=== PATIENT | female | born 1950 | race Caucasian/White ===

== ENCOUNTER 2023-07-25 09:47 | Inpatient (IN) ==
--- NOTE | 2023-07-25 10:05 | Emergency Department Note ---
Impression & Plan Respiratory failure, Hypoxia, COPD (chronic obstructive pulmonary disease) ED Provider Note NAME: MYKEL SHELTON AGE: 72 SEX: F : 1950 ARRIVES VIA: Ambulance INFORMANT: Patient ED PROVIDER(S): José Miguel Campbell DO CHIEF COMPLAINT: Shortness of breath HPI: Patient is a 72-year-old female with a past medical history of COPD, hypertension and hyperlipidemia that presents to the ER via EMS for shortness of breath. She underwent elective surgery on her bilateral eyelids by Dr. Alejandro earlier today. When she was waking up from anesthesia which she had an LMA in place she started coughing and then they noticed rales. She was found to be hypoxic per the report in the 70%. EKG showed depressions. She was placed on oxygen and eventually titrated down to 6 L. She was given Lasix and transferred to the ER. Patient denies any chest pain but admits to shortness of breath. No belly pain, nausea, vomiting, or diarrhea. ADDITIONAL HISTORY OBTAINED: Per HPI Chronic Medical/Social Conditions Affecting Care: Per HPI PAST MEDICAL HISTORY:See Below PAST SURGICAL HISTORY:See Below FAMILY HISTORY:See Below SOCIAL HISTORY:See Below HOME MEDICATIONS:See Below ALLERGIES:See Below VITALS:See Below PHYSICAL EXAMINATION: GENERAL: Sitting up in bed, alert, dyspneic with conversation, slightly ill- appearing EYE EXAM: normal conjunctiva. PERRL and EOM's grossly intact. Sutures bilaterally throughout the eyelids OROPHARYNX: mucous membranes are moist NECK: supple, no nuchal rigidity, no adenopathy, non-tender LUNGS: Rales bilaterally normal chest wall mechanics HEART: no murmurs, S1 normal and S2 normal ABDOMEN: abdomen soft, non-tender, normo-active bowel sounds, no masses, no rebound or guarding. BACK: Back is symmetrical on inspection and there is no deformity, no midline tenderness, no CVA tenderness. UPPER EXTREMITIES: upper extremities are grossly normal. LOWER EXTREMITIES: No pitting edema. NEURO EXAM: Normal sensorium, cranial nerves II-XII grossly intact, normal speech, no gross weakness of arms, no gross weakness of legs. MEDICAL DECISION MAKING: Patient is a 72-year-old female who presents the ER from anesthesia following have bilateral eye glued surgeries performed. She was found to be hypoxic when they woke her up from anesthesia with an LMA in place. She was transferred to hospice prior to receiving Lasix with a chest x-ray suggesting pulmonary edema. Upon arrival she is found to be hypoxic on room air was placed on 6 L. IV was established blood work was obtained. Labs showed mild leukocytosis of 13,000. No significant anemia. BMP along LFTs bilirubin and Pro-Anatoly was unremarkable. Chest x-ray with mild pulmonary edema. Patient already received Lasix prior to arrival. Hypoxia improved but she was still hypoxic with any movement. She remained on nasal cannula. She updated bedside and discussed case with the hospitalist for further evaluation management treatment Dr. Brain Mcdermott. Consults/Care Managements Discussions: Per [facility] Triage Nursing notes reviewed. Limited review of prior medical records performed Vital Signs: reviewed and remarkable for tachycardic and hypoxic Differential diagnosis: Differential diagnoses includes but is not limited to pneumonia, bronchitis, COPD/Asthma exacerbation, pneumothorax, pulmonary embolism, congestive heart failure, acute coronary syndrome ER treatment provided: See below Diagnostics interpreted by me include EKG and cardiac monitoring as listed below: -Cardiac Monitoring: An order was placed for continuous cardiac monitoring. The monitor shows a rate of 95 with sinus rhythm. -ECG: Sinus rhythm rate of 90 Left axis No PVCs T wave flattening and ST depressions anterior lateral and high lateral leads -Laboratory studies:Interpreted by me as stated above in MDM and shown below. Imaging studies: Xrays: As interpreted by me: Portable AP upright 1 view of the chest shows mild pulmonary congestion CTs show: none Procedures:none Critical Care: I have personally spent 32 minutes of critical care time in the direct management of this patient. This includes bedside care, interpretation of diagnostic studies, and testing, discussion with consultants, patient, and family members, and other required patient management activities. This 32 minutes is in excess of all separately billable procedures. Past Med/Surg History Problem List (Updated 07/25/23 @ 14:11 by José Miguel Campbell DO) Respiratory failure (Acute) Hypoxia (Acute) Dermatochalasis of both upper eyelids COPD (chronic obstructive pulmonary disease) (Acute) Hyperlipidemia Hypertension Arthritis Medical History Osteoarthritis Overactive bladder Stress incontinence Seasonal allergies COPD (chronic obstructive pulmonary disease) daily inh Hyperlipidemia Hypertension Surgical History Hx of cardiac catheterization within last 5 years, but not the past year, abn stress test, [facility], no stents; f/u [facility] pina>>had recent stress test fall 2022 "everything looked good" Hx of colonoscopy Hx of bilateral cataract extraction Family History Other Heart disease Prostate cancer Social History (Updated 03/20/23 @ 09:59 by Dara Cortes) Smoking Status: Former smoker Second Hand Exposure: Yes (hx); Do You Dip or Chew Tobacco: No; Hx Alcohol Use: No Hx Substance Use: No Preferred Language: Welsh Communication Ability: Effective Retail Experience Specialist Required: No Beliefs That Will Affect Care: None Current Living Situation: Spouse Feels Safe at Home: Yes Assistive Devices: None Allergies Allergies Allergy/AdvReac Type Severity Reaction Status Date / Time No Known Allergies Allergy Mild Verified 07/25/23 06:19 Home Meds Home Medications Medication Instructions Recorded Confirmed amlodipine 5 mg tablet 5 mg PO QAM 03/20/23 07/25/23 aspirin 81 mg tablet,delayed 81 mg PO HS 03/20/23 07/25/23 release atorvastatin 40 mg tablet 40 mg PO HS 03/20/23 07/25/23 cranberry 500 mg capsule 500 mg PO QAM 03/20/23 07/25/23 docusate sodium 100 mg capsule 100 mg PO HS 03/20/23 07/25/23 fluticasone fur. 100 mcg-umeclid 1 inh inhalation QAM 03/20/23 07/25/23 62.5 mcg-vilant 25 mcg inhalat.powder (Trelegy Ellipta) losartan 100 mg tablet 100 mg PO QAM 03/20/23 07/25/23 magnesium 200 mg tablet 400 mg PO QAM 03/20/23 07/25/23 omeprazole 20 mg capsule,delayed 20 mg PO QAM 03/20/23 07/25/23 release roflumilast 500 mcg tablet 500 mcg PO QAM 03/20/23 07/25/23 Retatrutide 1 dose INJ Q7D weight loss 07/04/23 07/25/23 celecoxib 100 mg capsule 100 mg PO BID 07/25/23 07/25/23 cholecalciferol (vitamin D3) 25 25 mcg PO QAM 07/25/23 07/25/23 mcg (1,000 unit) tablet (Vitamin D3) solifenacin 10 mg tablet 10 mg PO HS PRN Overactive Bladder 07/25/23 07/25/23 Previous Rx's Medication Instructions Recorded erythromycin 5 mg/gram (0.5 %) eye 0.5 inch ophthalmic (eye) BID #3.5 07/09/23 ointment grams hydrocodone 5 mg-acetaminophen 325 1 tab PO Q4H PRN pain #10 tabs 07/09/23 mg tablet Results & Data (ED) Vital Signs Vital Signs - 24 hr 07/25/23 10:15 07/25/23 10:18 07/25/23 10:19 Temperature 36.4 C L Temperature Source Oral Pulse Rate 82 Pulse Rate [Exercises] Pulse Rate [Left Finger] Pulse Rhythm Regular Pulse Strength Normal Respiratory Rate 38 H Respiratory Rate [Exercises] Respiratory Effort / Characteristics Spontaneous Accessory Muscle Use Short of Breath SOB on Exertion Spontaneous Accessory Muscle Use Short of Breath SOB on Exertion Respiratory Depth Shallow Shallow Respiratory Pattern Tachypnea Tachypnea Blood Pressure 138/74 Blood Pressure [Left Arm] Blood Pressure Mean 95 Blood Pressure Mean [Left Arm] Blood Pressure Position Sitting Pulse Oximetry 71 L 71 L Pulse Oximetry [Exercises] Oxygen Delivery Method Room Air Oxymask Oxymask Oxygen Flow Rate 0 Sepsis Recent Fever Within 48 Hours No Sepsis New/Unexplained Change in Mental Status No Sepsis Action Taken by Nursing No Action Required Oxygen Flow Rate - Titration 8 Pulse Oximetry Post Tiitration 100 07/25/23 10:27 07/25/23 11:42 07/25/23 12:20 Temperature Temperature Source Pulse Rate 84 90 Pulse Rate [Exercises] 86 Pulse Rate [Left Finger] Pulse Rhythm Pulse Strength Respiratory Rate 16 Respiratory Rate [Exercises] 24 Respiratory Effort / Characteristics Respiratory Depth Respiratory Pattern Blood Pressure Blood Pressure [Left Arm] Blood Pressure Mean Blood Pressure Mean [Left Arm] Blood Pressure Position Pulse Oximetry 98 Pulse Oximetry [Exercises] 84 L Oxygen Delivery Method Aerosol Mask Room Air Oxygen Flow Rate Sepsis Recent Fever Within 48 Hours Sepsis New/Unexplained Change in Mental Status Sepsis Action Taken by Nursing Oxygen Flow Rate - Titration Pulse Oximetry Post Tiitration 07/25/23 12:20 07/25/23 12:38 Temperature Temperature Source Pulse Rate Pulse Rate [Exercises] Pulse Rate [Left Finger] 96 H Pulse Rhythm Pulse Strength Respiratory Rate 28 H Respiratory Rate [Exercises] Respiratory Effort / Characteristics Non-Labored Spontaneous Respiratory Depth Normal Respiratory Pattern Blood Pressure Blood Pressure [Left Arm] 138/74 Blood Pressure Mean Blood Pressure Mean [Left Arm] 95 Blood Pressure Position Pulse Oximetry 84 L 95 Pulse Oximetry [Exercises] Oxygen Delivery Method Room Air Nasal Cannula Oxygen Flow Rate 0 2.5 Sepsis Recent Fever Within 48 Hours Sepsis New/Unexplained Change in Mental Status Sepsis Action Taken by Nursing Oxygen Flow Rate - Titration 2.5 Pulse Oximetry Post Tiitration 93 Laboratory Data 07/25/23 10:52 07/25/23 10:52 Lab Results 07/25/23 Range/Units 10:52 WBC 13.18 H (4.8-10.8) K/ul RBC 5.14 (4.20-5.40) M/uL Hgb 14.0 (12.0-16.0) g/dl Hct 45.2 (37.0-47.0) % MCV 87.9 (80.0-100.0) fL MCH 27.2 (25.0-34.0) pg MCHC 31.0 L (32.0-36.0) g/dL RDW Std Deviation 45.7 (36.4-46.3) fL RDW Coeff of Judith 14.2 (11.5-14.5) % Plt Count 343 (130-400) K/uL MPV 10.7 (9.4-12.4) fL Immature Gran % (Auto) 0.5 % Neut % (Auto) 91.7 % Lymph % (Auto) 6.6 % [place] % (Auto) 0.9 % Eos % (Auto) 0.0 % Baso % (Auto) 0.3 % Neut # (Auto) 12.08 H (1.40-6.50) K/uL Lymph # (Auto) 0.87 L (1.20-3.40) K/uL [place] # (Auto) 0.12 (0.11-0.59) K/uL Eos # (Auto) 0.00 (0.00-0.50) K/uL Baso # (Auto) 0.04 (0.00-0.20) K/uL Immature Gran # (Auto) 0.07 (0.01-0.20) K/uL Toxic Vacuolation 1+ Sodium 138 (136-145) mmol/L Potassium 3.6 (3.5-5.1) mmol/L Chloride 102 (98-107) mmol/L Carbon Dioxide 27 (21-32) mmol/L Anion Gap 9 (3-11) BUN 15 (6-23) mg/dl Creatinine 0.83 (0.6-1.2) mg/dl Est Cr Clr Drug Dosing 67.6 ml/min Est GFR ( Amer) 81.1 ml/min Est GFR (Non-Af Amer) 70.0 ml/min BUN/Creatinine Ratio 18.1 (10-20) Glucose 144 H (70-99(Fasting)) mg/dl Calcium 9.2 (8.6-10.3) mg/dl Total Bilirubin 0.4 (0.2-1.0) mg/dl AST 16 (13-39) U/L ALT 17 (7-52) U/L Alkaline Phosphatase 117 H (34-104) U/L Troponin I High Sens 7.9 (0-14) pg/ml B-Natriuretic Peptide 13 (0-100) pg/ml Total Protein 8.1 (6.0-8.3) gm/dl Albumin 4.6 (3.4-5.0) gm/dl Globulin 3.5 (2.5-4.0) gm/dl Albumin/Globulin Ratio 1.3 (0.9-2) Lipase 12 (11-82) U/L Procalcitonin 0.15 (0-0.5) ng/ml Administered Medications Discontinued Medications Acetaminophen (Acetaminophen 500 Mg Tab) 1,000 mg PO NOW STA Stop: 07/25/23 13:18 Last Admin: 07/25/23 13:25 Dose: 1,000 mg Documented By: MMG Albuterol (Albut/Ipratrop 3mg/0.5mg Neb 3 Ml Vial) 3 ml NEB NOW STA; Protocol Stop: 07/25/23 10:44 Last Admin: 07/25/23 11:37 Dose: 3 ml Documented By: NRB Furosemide (Furosemide 20 Mg Tab) 20 mg PO NOW STA Stop: 07/25/23 12:26 Last Admin: 07/25/23 13:14 Dose: 20 mg Documented By: BEREKET Imaging Data Radiologist's Impression: Chest X-Ray 07/25/23 09:58 XR chest 1V portable CLINICAL HISTORY: Chest pain, nonspecific TECHNIQUE: Single frontal radiograph of the chest was obtained. Comparison: Comparison is made to chest radiograph 07/25/2023 FINDINGS: No lines and tubes are seen. The cardiomediastinal silhouette is normal. Prominence and cephalization of the vasculature is seen. No evidence of pleural effusion or pneumothorax. IMPRESSION: Cardiomegaly and mild pulmonary edema. ACT 112: Negative or not required by law. Electronically signed by: Dorian Gore M.D. 07/25/2023 11:18 AM Discharge Plan Visit Data Chief Complaint: Respiratory Problems Stated Complaint: HYPOXIA ED Provider: José Miguel Campbell Discharge Problem: Respiratory failure, Hypoxia, COPD (chronic obstructive pulmonary disease) Forms Stand Alone Forms: My [facility] [employer] Prescriptions Prescriptions: No Action erythromycin 5 mg/gram (0.5 %) ointment 0.5 inch ophthalmic (eye) BID Qty: 3.5 0RF Rx Instructions: apply to sutures after surgery hydrocodone-acetaminophen 5-325 mg tablet 1 tab PO Q4H PRN (Reason: pain) Qty: 10 0RF Rx Instructions: initial therapy Dr. Alejandro [id number] amlodipine 5 mg tablet 5 mg PO QAM losartan 100 mg tablet 100 mg PO QAM Trelegy Ellipta 100-62.5-25 mcg blister with device 1 inh inhalation QAM roflumilast 500 mcg tablet 500 mcg PO QAM atorvastatin 40 mg tablet 40 mg PO HS omeprazole 20 mg capsule,delayed release(DR/EC) 20 mg PO QAM magnesium 200 mg tablet 400 mg PO QAM Hold Instructions: SURGERY cranberry 500 mg capsule 500 mg PO QAM Hold Instructions: SURGERY Rx Instructions: administer with meals aspirin 81 mg tablet,delayed release (DR/EC) 81 mg PO HS Hold Instructions: SURGERY docusate sodium 100 mg capsule 100 mg PO HS Retatrutide 1 dose INJ Q7D Hold Instructions: SURGERY Patient Comments: will be starting medication week of 07/07/23; as part of study [id number] Rx Instructions: Reasearch study, so pt is unsure of strength - Usually injects on Friday, but instead injected on Friday07/18/23 cholecalciferol (vitamin D3) [Vitamin D3] 25 mcg (1,000 unit) Tablet 25 mcg PO QAM celecoxib 100 mg capsule 100 mg PO BID solifenacin 10 mg tablet 10 mg PO HS PRN (Reason: Overactive Bladder) Referrals Referrals: Marcelle Platt M.D. [Primary Care Provider] - Discharge Problem: Respiratory failure Qualifiers: Chronicity: acute Respiratory failure complication: hypoxia Qualified Code(s): J96.01 - Acute respiratory failure with hypoxia COPD (chronic obstructive pulmonary disease) Qualifiers: COPD type: unspecified COPD Qualified Code(s): J44.9 - Chronic obstructive pulmonary disease, unspecified
[2023-07-25 11:08] LABS: Hematocrit (blood only) 45.2 % (37.0-47.0); Mean Corpuscular Hemoglobin 27.2 pg (25.0-34.0); Mean Corpuscular Volume 87.9 fL (80.0-100.0); Mean Platelet Volume 10.7 fL (9.4-12.4); Platelet Count 343 K/uL (130-400); RDW Coefficient of Variation 14.2 % (11.5-14.5); RDW Standard Deviation 45.7 fL (36.4-46.3); Red Blood Count 5.14 M/uL (4.20-5.40); White Blood Count 13.18 K/ul (4.8-10.8)
--- NOTE | 2023-07-25 11:19 | XRay Report ---
XR chest 1V portable CLINICAL HISTORY: Chest pain, nonspecific TECHNIQUE: Single frontal radiograph of the chest was obtained. Comparison: Comparison is made to chest radiograph 07/25/2023 FINDINGS: No lines and tubes are seen. The cardiomediastinal silhouette is normal. Prominence and cephalization of the vasculature is seen. No evidence of pleural effusion or pneumothorax. IMPRESSION: Cardiomegaly and mild pulmonary edema. ACT 112: Negative or not required by law. Electronically signed by: Dorian Gore M.D. 07/25/2023 11:18 AM
[2023-07-25 11:21] LABS: Albumin Globulin Ratio 1.3 (0.9-2); Albumin Level 4.6 gm/dl (3.4-5.0); BUN Creatinine Ratio 18.1 (10-20); Bilirubin,Total 0.4 mg/dl (0.2-1.0); Calcium 9.2 mg/dl (8.6-10.3); Creatinine Clr Calc Pharmacy 67.6 ml/min; Est GFR (African American) 81.1 ml/min; Globulin 3.5 gm/dl (2.5-4.0); Potassium 3.6 mmol/L (3.5-5.1); Total Protein 8.1 gm/dl (6.0-8.3)
[2023-07-25 11:27] LABS: Troponin I High Sensitivity 7.9 pg/ml (0-14)
[2023-07-25] MEDS: ALBUT/IPRATROP 3MG/0.5MG NEB 3 ML VIAL NEB STA (11:37)
[2023-07-25 12:06] LABS: Basophils # (auto) 0.04 K/uL (0.00-0.20); Basophils % (auto) 0.3 %; Immature Granulocytes # (auto) 0.07 K/uL (0.01-0.20); Immature Granulocytes % (auto) 0.5 %; Lymphocytes # (auto) 0.87 K/uL (1.20-3.40); Lymphocytes % (auto) 6.6 %; Monocytes # (auto) 0.12 K/uL (0.11-0.59); Monocytes % (auto) 0.9 %; Neutrophils # (auto) 12.08 K/uL (1.40-6.50); Neutrophils % (auto) 91.7 %; Toxic Vacuolation 1+
--- NOTE | 2023-07-25 12:37 | History & Physical Report ---
Date of Service July 25, 2023 Assessment & Plan (1) Hypoxia: Plan: -Admit to med/tele on pulse oximetry -Currently stable on RA at rest but quickly desaturates into the low 80's during ambulation on RA -Was sent to the ED after experiencing acute onset of tachypnea, hypoxia, and hypotension during her BL Blepharoplasty this am -CXR obtained during the procedure noted BL pulmonary vascular congestion, small pleural effusions, and mild pulmonary edema vs infectious/inflammatory pneumonitis -There was reported concern from anesthesiology regarding possible ST depressions in lead 3 while the patient was initially hypoxic, these have subsequently resolved on repeat ECG -Repeat CXR in the ED, after 20 mg IV Lasix shows significantly improved pulmonary edema -Suspect her initial respiratory failure was due to flash pulmonary edema occurring during intubation, patient is likely taking increased time to recover due to her hx of COPD -Procal is negative -Low suspicion for PE at this time as the patient has been hemodynamically stable while in the ED and is without chest discomfort -Patient states that she has PRN PO lasix at home but uses it sparingly for LE swelling -Will continue with the following: >Incentive spirometry/flutter therapy >Will give an additional 20 mg PO lasix now for ongoing diuresis today >QIDr DuoNebs >Continue home breathing treatments >PRN O2 to keep SpO2 between 89-92% -Monitor intake/output Q-shift -SQ lovenox for DVT PPX -HH diet with 2gm sodium restriction -AM CBC, CMP, mag (2) Status post blepharoplasty of both eyes: Plan: -Underwent BL Blepharoplasty with Dr. Alejandro prior to ED arrival -Dr. Alejandro reached out after admission, appreciate her assistance -Recommendations: >Continue Ice to surgical sites >Continue TID Polysporin to the surgical sites >Holding Celebrex for 7 days, with today being #1 >She has outpatient follow up on Friday, but we can reach out to Dr. Alejandro at any time if any questions or concerns (3) COPD (chronic obstructive pulmonary disease): Plan: -Wheezing improved after DuoNeb treatment -Does not appear to be in a COPD exacerbation at this time -Continue home meds -Wean to RA as able -Rest of care per hypoxia plan (4) Hypertension: Plan: -Stable -Can hold other antihypertensives today -Will plan to resume all antihypertensives tomorrow if stable (5) Hyperlipidemia: Plan: -Continue statin Plan The patient was discussed with Dr. Mcdermott at the time of the admission History of Present Illness Chief Complaint: Acute respiratory failure with hypoxia Primary Care Provider: Marcelle Platt Lisa Wright is a 72 year old female with a PMH significant for COPD, HTN, hyperlipidemia, and GERD who was sent to the ED from the OR after she became tachypneic and hypoxic during elective BL Upper Blepharoplasty with Dr. Brea Alejandro this am. Per the anesthesiology communication note, the patient became suddenly tachypneic, hypoxic with SpO2 in the 70s, and reportedly hypotensive (not documented). Chest xray and ECG were obtained. Chest xray was read as 1. Pulmonary vascular congestion. 2. There are asymmetric bilateral airspace opacities, greatest in the left upper lung. This could represent mild pulmonary edema and/or an infectious/inflammatory pneumonitis. Clinical correlation will be required and radiographic follow-up to resolution is recommended. 3. Suspect small pleural effusions. There was concern for possible ST depression in lead 3 on ECG. The patient was given 20 mg IV Lasix with reported improvement. She was sent to the Ed for further evaluation. On arrival to the ED the patient was reported to be tachypneic at 38 and hypoxic at 71% on RA but otherwise stable. However, these vitals were obtained shortly after the patient walked to and from her ED room bathroom. Labs ordered in the ED had yet to be drawn at the time of my exam. The patient was sitting in bed in no acute distress with her bedside, history was obtained from both. At the start of my exam the patient was saturating at 96% on 6L oxymask. I turned her to RA and she remained stable throughout my history and exam. The patient states that she feels well after receiving IV Lasix earlier. She has been urinating frequently. She denies current fever, chills, chest pain, SOB/increased work of breathing, increased cough compared to baseline, nausea, vomiting, diarrhea, dysuria, hematuria, melena, LE swelling, and recent trauma. The patient states that she feels well and would prefer to be discharged home, her is in agreement. We explained that we would like to see what her repeat ECG, CXR, and initial labs look like. They are in agreement with staying until the initial workup is complete. She took her am losartan and roflumilast prior to arrival. Labs were significant for a leukocytosis of 13, CMP WNL, BNP WNL, and high sen trop of WNL. The patient was ordered a DuoNeb treatment by our team and underwent ambulatory pulse oximetry testing on RA but quickly desaturated into the low 80's on RA. The patient is a full code and her is her POA. Please refer to Dr. Mcdermott's attestation for any changes to the treatment plan Allergies Allergy/AdvReac Type Severity Reaction Status Date / Time No Known Allergies Allergy Mild Verified 07/25/23 06:19 Home Medications Medication Instructions Recorded Confirmed Type amlodipine 5 mg tablet 5 mg PO QAM 03/20/23 07/25/23 History aspirin 81 mg tablet,delayed 81 mg PO HS 03/20/23 07/25/23 History release atorvastatin 40 mg tablet 40 mg PO HS 03/20/23 07/25/23 History cranberry 500 mg capsule 500 mg PO QAM 03/20/23 07/25/23 History docusate sodium 100 mg capsule 100 mg PO HS 03/20/23 07/25/23 History fluticasone fur. 100 mcg-umeclid 1 inh inhalation QA 03/20/23 07/25/23 History 62.5 mcg-vilant 25 mcg inhalat.powder (Trelegy Ellipta) losartan 100 mg tablet 100 mg PO QAM 03/20/23 07/25/23 History magnesium 200 mg tablet 400 mg PO QAM 03/20/23 07/25/23 History omeprazole 20 mg capsule,delayed 20 mg PO QAM 03/20/23 07/25/23 History release roflumilast 500 mcg tablet 500 mcg PO QAM 03/20/23 07/25/23 History Retatrutide 1 dose INJ Q7D weight loss 07/04/23 07/25/23 History erythromycin 5 mg/gram (0.5 %) eye 0.5 inch ophthalmic (eye) BID #3.5 07/09/23 07/25/23 Rx ointment grams hydrocodone 5 mg-acetaminophen 325 1 tab PO Q4H PRN pain #10 tabs 07/09/23 07/25/23 Rx mg tablet celecoxib 100 mg capsule 100 mg PO BID 07/25/23 07/25/23 History cholecalciferol (vitamin D3) 25 25 mcg PO QAM 07/25/23 07/25/23 History mcg (1,000 unit) tablet (Vitamin D3) solifenacin 10 mg tablet 10 mg PO HS PRN Overactive Bladder 07/25/23 07/25/23 History Past Med/Surg History Problem List (Updated 07/25/23 @ 14:11 by José Miguel Campbell, ) Status post blepharoplasty of both eyes Respiratory failure (Acute) Hypoxia (Acute) Dermatochalasis of both upper eyelids COPD (chronic obstructive pulmonary disease) (Acute) Hyperlipidemia Hypertension Arthritis Medical History Osteoarthritis Overactive bladder Stress incontinence Seasonal allergies COPD (chronic obstructive pulmonary disease) daily inh Hyperlipidemia Hypertension Surgical History Hx of cardiac catheterization within last 5 years, but not the past year, abn stress test, [facility], no stents; f/u dr. gallego, [place]>>had recent stress test fall 2022 "everything looked good" Hx of colonoscopy Hx of bilateral cataract extraction Family History Other Heart disease Prostate cancer Social History (Updated 03/20/23 @ 09:59 by Dara Cortes) Smoking Status: Never smoker Second Hand Exposure: No; Do You Dip or Chew Tobacco: No; Hx Alcohol Use: No Hx Substance Use: No Preferred Language: Urdu Communication Ability: Effective [employer] Field Agent Required: No Beliefs That Will Affect Care: None Current Living Situation: Alone Feels Safe at Home: Yes Assistive Devices: None Physical Exam Physical Exam: Physical Exam: General: In no acute distress, stated age, chronically ill appearing but non-toxic HEENT: S/P BL Blepharoplasty with clean and intact surgical sites S/P closure, no scleral icterus, pupils around round, symmetrical, and reactive to light, moist mucus membranes, trachea midline, no thyromegaly Chest/Pulm: No respiratory distress, symmetrical chest expansion, scattered expiratory wheezing and crackles Cardiac: RRR, no murmurs noted Abdomen: Negative for ascites and bruising, normoactive bowel sounds, soft, non-tender to palpation throughout Musculoskeletal: Symmetrical and without signs of acute trauma, upper and lower extremities with full ROM, no atrophy, spasticity, or flaccidity Extremities: Radial, dorsalis pedis, and posterior tibial pulses are intact and symmetrical, no edema noted in the BL LE's Skin: Warm, dry, no rashes , lesions, or scars noted Neuro: Alert and oriented to person, place, month, year, and president, no focal defects, no tremors noted Psych: No acute distress, calm and cooperative during the exam Results & Data Results & Data Vital Signs (Past 12 Hours) Vital Signs Temp Pulse Pulse Resp Resp BP Pulse Ox 07/25/23 12:20 84 L 07/25/23 12:20 86 24 07/25/23 11:42 90 16 98 07/25/23 10:27 84 07/25/23 10:19 07/25/23 10:18 71 L 07/25/23 10:15 36.4 C L 82 38 H 138/74 71 L Pulse Ox O2 Del Method O2 Flow Rate 07/25/23 12:20 Room Air 0 07/25/23 12:20 84 L Room Air 07/25/23 11:42 Aerosol Mask 07/25/23 10:27 07/25/23 10:19 Oxymask 07/25/23 10:18 Oxymask 0 07/25/23 10:15 Room Air Laboratory Results Abnormal lab results 07/25/23 Range/Units 10:52 WBC 13.18 H (4.8-10.8) K/ul MCHC 31.0 L (32.0-36.0) g/dL Neut # (Auto) 12.08 H (1.40-6.50) K/uL Lymph # (Auto) 0.87 L (1.20-3.40) K/uL Glucose 144 H (70-99(Fasting)) mg/dl Alkaline Phosphatase 117 H (34-104) U/L Diagnostic Findings Chest X-Ray 07/25/23 09:58 XR chest 1V portable CLINICAL HISTORY: Chest pain, nonspecific TECHNIQUE: Single frontal radiograph of the chest was obtained. Comparison: Comparison is made to chest radiograph 07/25/2023 FINDINGS: No lines and tubes are seen. The cardiomediastinal silhouette is normal. Prominence and cephalization of the vasculature is seen. No evidence of pleural effusion or pneumothorax. IMPRESSION: Cardiomegaly and mild pulmonary edema. ACT 112: Negative or not required by law. Electronically signed by: Dorian Gore M.D. 07/25/2023 11:18 AM ECG Additional Comments: Normal sinus rhythm Minimal voltage criteria for LVH, may be normal variant ( R in aVL ) Nonspecific ST and T wave abnormality Abnormal ECG When compared with ECG of 25-JUL-2023 09:02, (unconfirmed) No significant change was found Code Status & VTE Plan Code Status Full code VTE Prophylaxis Plan VTE Prophylaxis will be ordered: Yes PG Care Time/CCT Total # of Minutes Spent Total Time Spent with Patient: Total time spent is greater than 50% in coordination of care (as documented) at patient's floor/unit and/or counseling patient: [place] [address] INT INP/OBS CARE 3/75MIN Patient Type New History Comprehensive Exam Comprehensive Medical Decision Making High Complexity Diagnoses Hypoxia R09.02 Status post blepharoplasty of both eyes Z98.890 COPD (chronic obstructive pulmonary disease) J44.9 Hypertension I10 Hyperlipidemia E78.5
[2023-07-25] MEDS: FUROSEMIDE 20 MG TAB PO STA (13:14)
[2023-07-25] MEDS: ACETAMINOPHEN 500 MG TAB PO STA (13:25)
[2023-07-25] MEDS: ALBUT/IPRATROP 3MG/0.5MG NEB 3 ML VIAL NEB SCH (14:29)
--- NOTE | 2023-07-25 15:23 | Electrocardiogram Report ---
Test Reason : Blood Pressure : / mmHG Vent. Rate : 090 BPM Atrial Rate : 090 BPM P-R Int : 148 ms QRS Dur : 084 ms QT Int : 350 ms P-R-T Axes : 049 -09 139 degrees QTc Int : 428 ms Normal sinus rhythm Minimal voltage criteria for LVH, may be normal variant Nonspecific ST and T wave abnormality Abnormal ECG When compared with ECG of 25-JUL-2023 09:02, (unconfirmed) No significant change was found Confirmed by Kevin Zarco ([id number]) on 07/25/2023 3:23:35 PM Referred By: REFERRED SELF Confirmed By:Zion Zarco
[2023-07-25] MEDS: BACITRACIN/POLYMYXIN B SULFATE 90 APPLN/28.4 GM TUBE EXT SCH (16:20)
[2023-07-25] MEDS ORDERED: oxyBUTYnin chloride 5 MG TAB PO PRN (18:58)
[2023-07-25] MEDS: ACETAMINOPHEN 325 MG TAB PO PRN (20:03)
[2023-07-25] MEDS: DOCUSATE SODIUM 100 MG CAP PO SCH (20:04)
[2023-07-25] MEDS: ATORVASTATIN 40 MG TAB PO SCH (20:04)
[2023-07-25] MEDS: ASPIRIN 81 MG ECTAB PO SCH (20:06)
[2023-07-25] MEDS: ENOXAPARIN INJ 40 MG/0.4 ML SYR SQ SCH (20:06)
[2023-07-25] MEDS: HYDROCODONE/ACETAMOPHEN 5/325MG TAB PO PRN (23:28)
[2023-07-26 07:06] LABS: Basophils # (auto) 0.03 K/uL (0.00-0.20); Basophils % (auto) 0.2 %; Eosinophils # (auto) 0.02 K/uL (0.00-0.50); Eosinophils % (auto) 0.1 %; Hematocrit (blood only) 37.4 % (37.0-47.0); Hemoglobin 11.7 g/dl (12.0-16.0); Immature Granulocytes # (auto) 0.06 K/uL (0.01-0.20); Immature Granulocytes % (auto) 0.4 %; Lymphocytes # (auto) 2.36 K/uL (1.20-3.40); Mean Corpuscular Hemoglobin 27.5 pg (25.0-34.0); Mean Corpuscular Hgb Conc 31.3 g/dL (32.0-36.0); Mean Corpuscular Volume 87.8 fL (80.0-100.0); Mean Platelet Volume 10.6 fL (9.4-12.4); Monocytes # (auto) 0.88 K/uL (0.11-0.59); Monocytes % (auto) 6.4 %; Neutrophils % (auto) 75.9 %; Platelet Count 329 K/uL (130-400); RDW Coefficient of Variation 14.4 % (11.5-14.5); RDW Standard Deviation 45.9 fL (36.4-46.3); Red Blood Count 4.26 M/uL (4.20-5.40); White Blood Count 13.85 K/ul (4.8-10.8)
[2023-07-26 07:16] LABS: Albumin Globulin Ratio 1.4 (0.9-2); BUN Creatinine Ratio 23.7 (10-20); Bilirubin,Total 0.4 mg/dl (0.2-1.0); Calcium 8.6 mg/dl (8.6-10.3); Creatinine Clr Calc Pharmacy 75.4 ml/min; Est GFR (African American) 90.2 ml/min; Est GFR (Non-African American) 77.8 ml/min; Globulin 2.8 gm/dl (2.5-4.0); Magnesium 1.9 mg/dl (1.7-2.4); Potassium 4.3 mmol/L (3.5-5.1); Total Protein 6.8 gm/dl (6.0-8.3)
[2023-07-26] MEDS: ROFLUMILAST 500 MCG TAB PO SCH (08:22)
[2023-07-26] MEDS: amLODIPine BESYLATE 5 MG TAB PO SCH (08:22)
[2023-07-26] MEDS: COUGH DROP (SUGAR FREE) LOZ 24 LOZ/1 BOX BUCCAL STA (08:22)
[2023-07-26] MEDS: MAGNESIUM OXIDE 400 MG TAB PO SCH (08:22)
[2023-07-26] MEDS: PANTOprazole 40 MG TAB PO SCH (08:22)
[2023-07-26] MEDS: LOSARTAN POTASSIUM 50 MG TAB PO SCH (08:22)
[2023-07-26] MEDS: FUROSEMIDE 40 MG/4 ML VIAL IV SCH (08:39)
[2023-07-26 09:01] LABS: D Dimer 480 ug/L FEU (0-500)
--- NOTE | 2023-07-26 09:45 | Hospitalist Progress Note ---
Date of Service July 26, 2023 Assessment & Plan (1) Hypoxia: Plan: Acute hypoxic respiratory failure present on admission. Treat underlying CHF. Oxygen to keep saturation greater than 90%. Wean off as tolerated. (2) Acute diastolic CHF (congestive heart failure): Plan: Continue Lasix diuresis. Monitor intake and output. Await cardiac echo results. Serial chest x-ray (3) Status post blepharoplasty of both eyes: Plan: Postoperative day #1. She underwent BL Blepharoplasty with Dr. Alejandro yesterday, July 24. Local care. (4) COPD (chronic obstructive pulmonary disease): Plan: Stable. Shortness of breath appears to be due to CHF rather than a COPD exacerbation. Continue current medical management. Wean off oxygen as tolerated. (5) Hypertension: Plan: Stable. Continue current medical management (6) Hyperlipidemia: Plan: Stable. Continue statin Plan Hopeful discharge to home within the next day or 2 Admission and Anticipated Discharge Date Admission Date: July 25, 2023 Subjective Alert and oriented. No distress. She continues to require oxygen and appears to have developed congestive heart failure during the bilateral blepharoplasty procedure yesterday, July 24. Cardiac echo report is pending. She is now on Lasix IV 40 mg every 12 hours. D-dimer is pending. If it is elevated, chest CTA will be obtained. Review of Systems 2 Review of Systems: Constitutional-no fever or chills ENT-no blurred vision, no double vision, no epistaxis, no sore throat. Bilateral blepharoplasty surgical sites are unremarkable. She has some associated bruising Respiratory-no cough, no wheezing. Shortness of breath with minimal exertion Cardiac-no palpitations, no chest pain, no syncope GI-no nausea, vomiting, diarrhea, melena, hematochezia -no urinary retention, no urinary incontinence, no dysuria, no hematuria Musculoskeletal-no joint pain, no muscle tenderness Skin-no bruising, no rashes, no pruritus Neuro-no isolated weakness, no paresthesia, no weakness Psych-no depression, no anxiety Physical Exam 2 Physical Exam: General-alert and oriented x3, no fever, no chills HEENT-head atraumatic and normocephalic, pupils equal and reactive to light, extraocular muscles intact. Bilateral blepharoplasty surgical sites are intact with some ecchymoses noted Neck-no lymphadenopathy or thyromegaly, trachea midline Chest-bibasilar inspiratory rales. No rhonchi. No wheezing Cardiac-regular rate and rhythm, normal S1 and S2 Abdomen-normal bowel sounds, no hepatosplenomegaly Extremities-no cyanosis, clubbing, or edema Neuro-cranial nerves II through XII intact, motor and sensory function within normal limits, strength symmetrical, no focal deficits Psych-normal affect, normal mood Results & Data Results & Data Vital Signs (Past 12 Hours) Vital Signs Temp Pulse Pulse Resp BP Pulse Ox O2 Del Method 07/26/23 07:36 36.6 C 65 18 137/82 98 Nasal Cannula 07/26/23 07:31 74 18 94 Nasal Cannula 07/26/23 07:00 69 07/26/23 03:36 36.6 C 71 20 144/77 H 96 Room Air 07/26/23 01:43 Nasal Cannula 07/26/23 00:27 36.7 C 100 H 20 165/81 H 94 Nasal Cannula 07/25/23 21:59 101 H O2 Flow Rate 07/26/23 07:36 7 07/26/23 07:31 3 07/26/23 07:00 07/26/23 03:36 07/26/23 01:43 2.5 07/26/23 00:27 2 07/25/23 21:59 Laboratory Results 07/26/23 06:15 07/26/23 06:15 PG Care Time/CCT Total # of Minutes Spent Total Time Spent with Patient: Total time spent is greater than 50% in coordination of care (as documented) at patient's floor/unit and/or counseling patient: Coding Level of Care Code 35621 SUB INP/OBS CARE 3/50MIN Diagnoses Hypoxia R09.02 Acute diastolic CHF (congestive heart failure) I50.31 Status post blepharoplasty of both eyes Z98.890 COPD (chronic obstructive pulmonary disease) J44.9 COPD type: unspecified COPD Hypertension I10 Hyperlipidemia E78.5 (4) COPD (chronic obstructive pulmonary disease) COPD type: unspecified COPD Qualified Code(s): J44.9 - Chronic obstructive pulmonary disease, unspecified
[2023-07-26] MEDS: IPRATROPIUM BROMIDE NEB SOLN 0.02% 0.5MG/2.5ML VIAL NEB SCH (16:06)
[2023-07-26] MEDS: LEVALBUTEROL 1.25 MG/3 ML NEB NEB SCH (16:06)
--- NOTE | 2023-07-27 | XCELERA ---
[id number]
[2023-07-27 06:42] LABS: Basophils # (auto) 0.04 K/uL (0.00-0.20); Basophils % (auto) 0.4 %; Eosinophils # (auto) 0.09 K/uL (0.00-0.50); Eosinophils % (auto) 0.9 %; Hematocrit (blood only) 38.3 % (37.0-47.0); Hemoglobin 12.2 g/dl (12.0-16.0); Immature Granulocytes # (auto) 0.05 K/uL (0.01-0.20); Immature Granulocytes % (auto) 0.5 %; Lymphocytes # (auto) 2.51 K/uL (1.20-3.40); Lymphocytes % (auto) 23.9 %; Mean Corpuscular Hemoglobin 27.7 pg (25.0-34.0); Mean Corpuscular Hgb Conc 31.9 g/dL (32.0-36.0); Mean Platelet Volume 10.9 fL (9.4-12.4); Monocytes # (auto) 0.73 K/uL (0.11-0.59); Monocytes % (auto) 6.9 %; Neutrophils % (auto) 67.4 %; Platelet Count 326 K/uL (130-400); RDW Coefficient of Variation 14.4 % (11.5-14.5); RDW Standard Deviation 46.1 fL (36.4-46.3); White Blood Count 10.52 K/ul (4.8-10.8)
[2023-07-27 07:11] LABS: Calcium 9.3 mg/dl (8.6-10.3); Creatinine Clr Calc Pharmacy 74.8 ml/min; Est GFR (African American) 91.7 ml/min; Est GFR (Non-African American) 79.1 ml/min; Potassium 4.2 mmol/L (3.5-5.1)
--- NOTE | 2023-07-27 08:15 | XRay Report ---
XR chest 1V portable HISTORY: 72 years-old Female CHF acute shortness of breath COMPARISON: 07/25/2023 TECHNIQUE: AP view of the chest FINDINGS: Cardiac silhouette is enlarged. Mild subsegmental bibasilar opacities. There is improved aeration of the lungs compared to the prior study. Bones appear grossly intact. IMPRESSION: 1. Cardiomegaly with continued improved aeration of the lungs. 2. Mild subsegmental bibasilar densities may be atelectatic. ACT 112: Negative or not required by law. The above report was generated using voice recognition software. It may contain grammatical, syntax o r spelling errors. Electronically signed by: Ministerio Elise M.D. 07/27/2023 8:14 AM
[2023-07-27] MEDS: POLYETHYLENE (MIRALAX) 17 GM PACK PO PRN (09:16)
--- NOTE | 2023-07-27 10:17 | Discharge Summary ---
Date of Service July 27, 2023 Admission HPI Per Admitting Provider Lisa Wright is a 72 year old female with a PMH significant for COPD, HTN, hyperlipidemia, and GERD who was sent to the ED from the OR after she became tachypneic and hypoxic during elective BL Upper Blepharoplasty with Dr. Brea Alejandro this am. Per the anesthesiology communication note, the patient became suddenly tachypneic, hypoxic with SpO2 in the 70s, and reportedly hypotensive (not documented). Chest xray and ECG were obtained. Chest xray was read as 1. Pulmonary vascular congestion. 2. There are asymmetric bilateral airspace opacities, greatest in the left upper lung. This could represent mild pulmonary edema and/or an infectious/inflammatory pneumonitis. Clinical correlation will be required and radiographic follow-up to resolution is recommended. 3. Suspect small pleural effusions. There was concern for possible ST depression in lead 3 on ECG. The patient was given 20 mg IV Lasix with reported improvement. She was sent to the Ed for further evaluation. On arrival to the ED the patient was reported to be tachypneic at 38 and hypoxic at 71% on RA but otherwise stable. However, these vitals were obtained shortly after the patient walked to and from her ED room bathroom. Labs ordered in the ED had yet to be drawn at the time of my exam. The patient was sitting in bed in no acute distress with her bedside, history was obtained from both. At the start of my exam the patient was saturating at 96% on 6L oxymask. I turned her to RA and she remained stable throughout my history and exam. The patient states that she feels well after receiving IV Lasix earlier. She has been urinating frequently. She denies current fever, chills, chest pain, SOB/increased work of breathing, increased cough compared to baseline, nausea, vomiting, diarrhea, dysuria, hematuria, melena, LE swelling, and recent trauma. The patient states that she feels well and would prefer to be discharged home, her is in agreement. We explained that we would like to see what her repeat ECG, CXR, and initial labs look like. They are in agreement with staying until the initial workup is complete. She took her am losartan and roflumilast prior to arrival. Labs were significant for a leukocytosis of 13, CMP WNL, BNP WNL, and high sen trop of WNL. The patient was ordered a DuoNeb treatment by our team and underwent ambulatory pulse oximetry testing on RA but quickly desaturated into the low 80's on RA. The patient is a full code and her is her POA. Please refer to Dr. Mcdermott's attestation for any changes to the treatment plan Principal Diagnosis Acute on chronic diastolic CHF, acute hypoxic respiratory failure Discharge Exam General-alert and oriented x3, no fever, no chills HEENT-head atraumatic and normocephalic, pupils equal and reactive to light, extraocular muscles intact. Bilateral blepharoplasty surgical sites are intact with some ecchymoses noted Neck-no lymphadenopathy or thyromegaly, trachea midline Chest-bibasilar inspiratory rales have now resolved. No rhonchi. No wheezing Cardiac-regular rate and rhythm, normal S1 and S2 Abdomen-normal bowel sounds, no hepatosplenomegaly Extremities-no cyanosis, clubbing, or edema Neuro-cranial nerves II through XII intact, motor and sensory function within normal limits, strength symmetrical, no focal deficits Psych-normal affect, normal mood Discharge Data Allergies Allergy/AdvReac Type Severity Reaction Status Date / Time No Known Allergies Allergy Mild Verified 07/25/23 06:19 Consultations 07/25/23 10:16 ED Decision to Admit Stat Hospital Course (1) Hypoxia: Acute hypoxic respiratory failure present on admission. Now resolved with treatment of underlying CHF. She has been weaned off of oxygen and and is now on room air (2) Acute diastolic CHF (congestive heart failure): Resolved with parenteral Lasix while hospitalized. Monitor intake and output. Cardiac echo results reviewed. She has mild left ventricular hypertrophy with normal ejection fraction and evidence of diastolic dysfunction. (3) Status post blepharoplasty of both eyes: Postoperative day #2. She underwent BL Blepharoplasty with Dr. Alejandro on July 24. Surgical sites are sutured and intact. Continue local care. (4) COPD (chronic obstructive pulmonary disease): Stable. Shortness of breath on admission appears to be due to CHF rather than a COPD exacerbation. Now resolved. She is on room air (5) Hypertension: Stable. Continue current medical management (6) Hyperlipidemia: Stable. Continue statin Plan Home today, July 26 Total Time Total Time Spent Total Time Spent (In Minutes): 45-minute Discharge Plan Discharge Items Patient Disposition: Home - Self-Care Reason For Visit: FLASH PULMONARY EDEMA, HYPOXIA Discharge Diagnosis: Acute on chronic diastolic CHF, acute hypoxic respiratory failure Activity: Resume your previous activity Non-emergency contact: Primary Care Provider and Surgeon Follow-up/Referrals: Marcelle Platt M.D. [Primary Care Provider] - Diet: Regular and Heart Healthy Addtl Attending Provider Instructions: All medications remain the same. Follow-up with plastic surgery as scheduled Pending Studies at Discharge: No Stand-Alone Forms: My [facility], Smoking Cessation Medications and DC Order Prescriptions: Continued erythromycin 5 mg/gram (0.5 %) ointment 0.5 inch ophthalmic (eye) BID Qty: 3.5 0RF Rx Instructions: apply to sutures after surgery hydrocodone-acetaminophen 5-325 mg tablet 1 tab PO Q4H PRN (Reason: pain) Qty: 10 0RF Rx Instructions: initial therapy Dr. Alejandro [id number] amlodipine 5 mg tablet 5 mg PO QAM losartan 100 mg tablet 100 mg PO QAM Trelegy Ellipta 100-62.5-25 mcg blister with device 1 inh inhalation QAM roflumilast 500 mcg tablet 500 mcg PO QAM atorvastatin 40 mg tablet 40 mg PO HS omeprazole 20 mg capsule,delayed release(DR/EC) 20 mg PO QAM magnesium 200 mg tablet 400 mg PO QAM Hold Instructions: SURGERY cranberry 500 mg capsule 500 mg PO QAM Hold Instructions: SURGERY Rx Instructions: administer with meals aspirin 81 mg tablet,delayed release (DR/EC) 81 mg PO HS Hold Instructions: SURGERY docusate sodium 100 mg capsule 100 mg PO HS Retatrutide 1 dose INJ Q7D Hold Instructions: SURGERY Patient Comments: will be starting medication week of 07/07/23; as part of study [id number] Rx Instructions: Reasearch study, so pt is unsure of strength - Usually injects on Friday, but instead injected on Friday07/18/23 cholecalciferol (vitamin D3) [Vitamin D3] 25 mcg (1,000 unit) Tablet 25 mcg PO QAM celecoxib 100 mg capsule 100 mg PO BID solifenacin 10 mg tablet 10 mg PO HS PRN (Reason: Overactive Bladder) Discharge Orders: Discharge Order- CHF (Routine); Ordered 07/27/23 Ordered By: Lenin Samuels Admission Data Admit Date/Time: 07/25/23 12:24 Attending Provider: Lenin Samuels Admit Provider: Brain Mcdermott Primary Care Provider: Marcelle Platt Other Providers: Brain Mcdermott Coding Level of Care Code 79758 INP/OBS DISCH >30 MIN Diagnoses Hypoxia R09.02 Acute diastolic CHF (congestive heart failure) I50.31 Status post blepharoplasty of both eyes Z98.890 COPD (chronic obstructive pulmonary disease) J44.9 COPD type: unspecified COPD Hypertension I10 Hyperlipidemia E78.5
== END 2023-07-27 11:24 | disposition home or self-care (01) | DRG 291 ==
LOC: ED 09:47 → SUATTDRO 12:24 → EDINP 12:24 → 2N 14:52